=== PATIENT | male | born 1990 | race Caucasian/White ===

== ENCOUNTER 2017-08-11 09:45 | Emergency (ER) | payer BC ==
[~2017-08-11] VITALS: Ht 182.9 cm; Wt 86.7 kg
[2017-08-11 10:39] LABS: BASOPHILS % (AUTO) 0.4 % (0-1); EOSINOPHILS # (AUTO) 0.1 X10'3 (0-0.9); EOSINOPHILS % (AUTO) 1.5 % (0-6); HEMATOCRIT 45.2 % (42.0-52.0); HEMOGLOBIN 15.8 g/dl (14.0-17.9); LYMPHOCYTES # (AUTO) 1.6 X10'3 (1.1-4.8); MEAN CORPUSCULAR HEMOGLOBIN 31.3 PG (27.0-31.0); MEAN CORPUSCULAR VOLUME 89.4 FL (78-98); MEAN PLATELET VOLUME 9.9 FL (7.4-10.4); MONOCYTES # (AUTO) 0.5 X10'3 (0-0.9); MONOCYTES % (AUTO) 5.3 % (2-12); NEUTROPHILS # (AUTO) 6.8 X10'3 (1.8-7.7); NEUTROPHILS % (AUTO) 74.8 % (42-75); PLATELET COUNT 206 X10'3 (140-440); RED BLOOD COUNT 5.06 X10'6 (4.70-6.10); RED CELL DISTRIBUTION WIDTH 12.6 % (11.5-14.5); WHITE BLOOD COUNT 9.1 X10'3 (4.5-11.0)
[2017-08-11 10:40] LABS: PROTHROMBIN TIME 10.3 SECONDS (9.0-12.0)
[2017-08-11 10:46] LABS: ALANINE AMINOTRANSFERASE 52 U/L (12-78); ALBUMIN 4.2 G/DL (3.4-5.0); ALBUMIN/GLOBULIN RATIO 1.3 (1.1-1.5); ALKALINE PHOSPHATASE 89 IU/L (46-116); AMYLASE 68 U/L (25-115); ANION GAP 8 (8-16); ASPARTATE AMINO TRANSFERASE 20 U/L (10-37); BILIRUBIN,TOTAL 0.9 MG/DL (0.1-1.0); BLOOD UREA NITROGEN 11 MG/DL (7-18); BUN/CREATININE RATIO 12.5 (5.4-32.0); CALCIUM 9.2 MG/DL (8.5-10.1); CHLORIDE 105 MMOL/L (99-107); CREATININE 0.88 MG/DL (0.60-1.10); GLUCOSE 96 MG/DL (70-104); LIPASE 123 U/L (73-393); POTASSIUM 4.2 MMOL/L (3.5-5.1); SODIUM 142 MMOL/L (135-145); TOTAL CARBON DIOXIDE 29.5 MMOL/L (24-32); TOTAL PROTEIN 7.5 G/DL (6.4-8.2); eGFR > 90 ML/MIN
[2017-08-11 10:50] LABS: CLARITY,URINE CLEAR (Clear); COLOR,URINE YELLOW (Yellow); GLUCOSE, URINE NEGATIVE (Neg); KETONES,URINE NEGATIVE (Neg); LEUKOCYTE ESTERASE ,URINE NEGATIVE (Neg); NITRITES, URINE NEGATIVE (Neg); OCCULT BLOOD,URINE NEGATIVE (Neg); PH,URINE 6.5 (4.8-8.0); PROTEIN,URINE NEGATIVE (Neg); UROBILINOGEN,URINE 0.2 E.U/dL (0.2-1.0)
[2017-08-11 10:51] LABS: UA COLLECTION TYPE CLN CATCH MIDSTREAM
[2017-08-11] MEDS ORDERED: BUPIVAcaine/PF 2.5 mg/ml (0.25%) 30ml vial ONE (14:21)
[2017-08-11] MEDS ORDERED: LIDOcaine 1% 30ml vial 30 ML ONE (14:21)
[2017-08-11] MEDS ORDERED: ringers solution, lacted 1,000 ML IV ONE (15:00)
[2017-08-11] MEDS ORDERED: ertapenem sod inj 1 GM in normal saline 100ml IV soln 100 ML IV SCH (15:00)
[2017-08-11] MEDS ORDERED: ertapenem sod inj 1 GM in normal saline 100ml IV soln 100 ML IV ONE (15:06)
[2017-08-11] MEDS ORDERED: AMOX-580 PO (16:09)
[2017-08-11 16:52] VITALS: BP 122/56
== END 2017-08-11 17:01 | disposition home or self-care (01) ==
LOC: ER 09:45
DX: K35.80 Unspecified acute appendicitis (principal); R10.32 Left lower quadrant pain
CPT/HCPCS: 36415; 74176; 80053; 81003; 82150; 83690; 85025; 85610; 96361; 96365; 99285; J1335; J3490; J7030; J7120